=== PATIENT | male | born 1935 | race Caucasian/White ===

== ENCOUNTER 2022-11-07 11:33 | Inpatient (IN) | payer OTHER ==
[~2022-11-07] VITALS: Ht 175.3 cm; Wt 76.4 kg
[~2022-11-07 11:33] MED LIST: OXYACE5T PO
[2022-11-07 12:01] LABS: BASOPHILS ABSOLUTE AUTO 0.02 K/mm3 (0.00-0.23); BASOPHILS PERCENT AUTO 0 % (0-2); EOSINOPHILS PERCENT AUTO 0 % (0-6); Hematocrit 39.7 % (37.0-53.0); Hemoglobin 13.3 g/dL (13.5-17.5); IMMATURE GRAN ABSOLUTE AUTO 0.03 K/mm3 (0.00-0.10); IMMATURE GRAN PERCENT AUTO 0 % (0-1); LYMPHOCYTES ABSOLUTE AUTO 0.29 K/mm3 (0.84-5.20); LYMPHOCYTES PERCENT AUTO 3 % (21-46); MONOCYTES ABSOLUTE AUTO 0.49 K/mm3 (0.16-1.47); MONOCYTES PERCENT AUTO 6 % (4-13); Mean Corpuscular HGB 32.2 pg (26.0-34.0); Mean Corpuscular HGB Conc 33.5 g/dL (31.5-36.5); Mean Corpuscular Volume 96 fL (80-100); Mean Platelet Volume 10.5 fL (9.1-12.4); NEUTROPHILS ABSOLUTE AUTO 7.68 K/mm3 (1.96-9.15); NEUTROPHILS PERCENT AUTO 90 % (41-73); Platelet Count 131 K/mm3 (150-400); RDW Coefficient Variation 12.1 % (11.7-14.2); RDW Standard Deviation 42.5 fL (35.1-46.3); Red Blood Cell Count 4.13 M/mm3 (4.30-5.90); White Blood Cell Count 8.51 K/mm3 (4.00-11.30)
[2022-11-07 12:12] LABS: Albumin, Blood 2.9 g/dL (3.4-5.0); Albumin/Globulin Ratio 0.8 (0.8-1.8); Calcium, Blood 8.4 mg/dL (8.5-10.1); Creatinine, Blood 0.75 mg/dL (0.60-1.20); Globulin, Blood 3.6 g/dL (2.2-4.0); Potassium, Blood 3.9 mmol/L (3.5-5.5); Total Protein, Blood 6.5 g/dL (6.4-8.2)
[2022-11-07 12:21] LABS: Source, Urine Clean Catch
[2022-11-07 12:25] LABS: Bilirubin, Urine Neg (Neg); Blood, Urine Neg (Neg); Glucose Qualitative, Urine Neg (Neg); Ketones, Urine 2+ (Neg); Leukocyte Esterase, Urine Neg (Neg); Nitrite, Urine Neg (Neg); Protein, Urine Neg (Neg); Specific Gravity, Urine 1.015 (1.003-1.022); Urobilinogen, Urine 1+ (Normal)
[2022-11-07 12:35] LABS: Appearance, Urine Clear (Clear); Color, Urine Yellow (P-Yellow)
[2022-11-07 15:05] LABS: Influenza A, PCR NEGATIVE (NEGATIVE); Influenza B, PCR NEGATIVE (NEGATIVE); Resp Syncytial Virus, PCR NEGATIVE (NEGATIVE); SARS-Cov-2 (COVID-19) PCR, MMC NEGATIVE (NEGATIVE)
[2022-11-07 15:22] VITALS: BP 128/87
--- NOTE | 2022-11-07 16:44 | NUR ---
SHIFT SUMMARY PATIENT IS A RECENT ADMIT FROM ED THIS AFTERNOON AFTER MULTIPLE FALLS AT HOME. PATIENT IS ALERT AND ORIENTED TO SELF ONLY. PATIENT IS EXTREMELY CONFUSED AND CANNOT TELL ME HIS NAME. PATIENT HAS NOT ENDORSED ANY PAIN, NAUSEA, SOB OR VOMITTING. BED ALARM IS ON. BED IN LOCKED AND LOWEST POSITION. WILL MONITOR UNTIL SHIFT CHANGE.
[2022-11-07 20:53] VITALS: BP 123/74
[2022-11-08 04:53] VITALS: BP 108/68
[2022-11-08 05:04] LABS: BASOPHILS ABSOLUTE AUTO 0.04 K/mm3 (0.00-0.23); BASOPHILS PERCENT AUTO 1 % (0-2); EOSINOPHILS ABSOLUTE AUTO 0.02 K/mm3 (0.00-0.68); EOSINOPHILS PERCENT AUTO 0 % (0-6); Hematocrit 38.1 % (37.0-53.0); Hemoglobin 12.6 g/dL (13.5-17.5); IMMATURE GRAN ABSOLUTE AUTO 0.02 K/mm3 (0.00-0.10); IMMATURE GRAN PERCENT AUTO 0 % (0-1); LYMPHOCYTES PERCENT AUTO 8 % (21-46); MONOCYTES ABSOLUTE AUTO 0.77 K/mm3 (0.16-1.47); MONOCYTES PERCENT AUTO 13 % (4-13); Mean Corpuscular HGB 32.3 pg (26.0-34.0); Mean Corpuscular HGB Conc 33.1 g/dL (31.5-36.5); Mean Corpuscular Volume 98 fL (80-100); Mean Platelet Volume 10.6 fL (9.1-12.4); NEUTROPHILS ABSOLUTE AUTO 4.77 K/mm3 (1.96-9.15); NEUTROPHILS PERCENT AUTO 78 % (41-73); Platelet Count 116 K/mm3 (150-400); RDW Coefficient Variation 12.3 % (11.7-14.2); RDW Standard Deviation 44.2 fL (35.1-46.3); White Blood Cell Count 6.12 K/mm3 (4.00-11.30)
--- NOTE | 2022-11-08 05:09 | NUR ---
SHIFT SUMMARY; NO ACUTE CHANGES OVERNIGHT. THE PT HAS BEEN RESTING IN BED FOR THE ENTIRETY OF THE NIGHT. THE PT IS AXO TO SELF ONLY, PT IS FREQUENTLY CONFUSED. THE PT IS INCONTINENT/CONTINENT. THE PT IS ON RA AT BASELINE BUT HAS BEEN ON 2L NC SINCE ADMIT WITH O2 SATS >92%. TELE IS IN PLACE, SINUS IN THE 80'S. THE PT DENIES ANY PAIN, SOB, CHEST PAIN/PRESSURE OR N/V THIS SHIFT. CURRENTLY THE PT IS SLEEPING IN BED WITH THE BED IN THE LOWEST POSITION AND THE CALL LIGHT AT BEDSIDE.
[2022-11-08 05:38] LABS: Albumin, Blood 2.5 g/dL (3.4-5.0); Albumin/Globulin Ratio 0.8 (0.8-1.8); Bilirubin, Total 1.3 mg/dL (0.1-1.0); Bun/Creatinine Ratio 31.4 (12.0-20.0); Calcium, Blood 8.2 mg/dL (8.5-10.1); Creatinine, Blood 0.83 mg/dL (0.60-1.20); Globulin, Blood 3.3 g/dL (2.2-4.0); Total Protein, Blood 5.8 g/dL (6.4-8.2)
[2022-11-08 07:19] VITALS: BP 110/73
[2022-11-08 15:07] VITALS: BP 114/66
--- NOTE | 2022-11-08 16:23 | NUR ---
SHIFT SUMMARY PATIENT IS ALERT BUT CONFUSED. PATIENT HAS HAD NO ACUTE EVENTS THIS SHIFT. VITAL SIGNS REVIEWED. PATIENT HAS HAD NO COMPLAINTS OF PAIN, NAUSEA, SOB OR VOMITTING. PATIENT REMAINS ON 2L. PATIENT HAS WORKED WITH PT/OT WELL TODAY. PATIENT REMAINS EXTREMELY CONFUSED AND ALERT AND ORIENTED TO SELF ONLY. BED IN LOCKED AND LOWEST POSITION. CALL LIGHT IN PLACE. WILL MONITOR UNTIL SHIFT CHANGE.
[2022-11-08 19:31] VITALS: BP 116/82
[2022-11-09 02:28] VITALS: BP 126/76
[2022-11-09 05:33] LABS: BASOPHILS ABSOLUTE AUTO 0.04 K/mm3 (0.00-0.23); BASOPHILS PERCENT AUTO 1 % (0-2); EOSINOPHILS ABSOLUTE AUTO 0.12 K/mm3 (0.00-0.68); EOSINOPHILS PERCENT AUTO 3 % (0-6); Hematocrit 40.2 % (37.0-53.0); Hemoglobin 13.5 g/dL (13.5-17.5); IMMATURE GRAN ABSOLUTE AUTO 0.01 K/mm3 (0.00-0.10); IMMATURE GRAN PERCENT AUTO 0 % (0-1); LYMPHOCYTES ABSOLUTE AUTO 0.57 K/mm3 (0.84-5.20); LYMPHOCYTES PERCENT AUTO 12 % (21-46); MONOCYTES ABSOLUTE AUTO 0.76 K/mm3 (0.16-1.47); MONOCYTES PERCENT AUTO 16 % (4-13); Mean Corpuscular HGB 31.9 pg (26.0-34.0); Mean Corpuscular HGB Conc 33.6 g/dL (31.5-36.5); Mean Corpuscular Volume 95 fL (80-100); Mean Platelet Volume 10.8 fL (9.1-12.4); NEUTROPHILS ABSOLUTE AUTO 3.33 K/mm3 (1.96-9.15); NEUTROPHILS PERCENT AUTO 69 % (41-73); Platelet Count 138 K/mm3 (150-400); RDW Coefficient Variation 12.1 % (11.7-14.2); RDW Standard Deviation 42.4 fL (35.1-46.3); Red Blood Cell Count 4.23 M/mm3 (4.30-5.90); White Blood Cell Count 4.83 K/mm3 (4.00-11.30)
[2022-11-09 05:56] LABS: Albumin, Blood 2.5 g/dL (3.4-5.0); Anion Gap 0 mmol/L (6-16); Blood Urea Nitrogen 21 mg/dL (8-24); CO2, Blood 29 mmol/L (21-32); Calcium, Blood 8.6 mg/dL (8.5-10.1); Chloride, Blood 106 mmol/L (98-108); Creatinine, Blood 0.75 mg/dL (0.60-1.20); Glomerular Filtration Rate 87 (60-); Glucose, Blood 94 mg/dL (70-99); Phosphorus, Blood 2.1 mg/dL (2.5-4.9); Potassium, Blood 3.7 mmol/L (3.5-5.5); Sodium, Blood 135 mmol/L (136-145)
--- NOTE | 2022-11-09 06:37 | NUR ---
JUSTICE COURT JUDGE SUMMARY ASSUMED CARE OF THE PT AT 1900. HE IS PLEASANTLY CONFUSED, ORIENTED TO SELF ONLY. BED ALARM ON DUE TO PT FREQUENTLY CLIMBING OUT OF BED. PT HAD NO EVENTS ON TELE AND CONTINUED TO REMOVE IT SO ORDER OBTAINED TO DC TELE. PT USES URINAL INDEPENDENTLY AT TIMES BUT HAS SOME DIFFICULTY. NO ACUTE EVENTS.
[2022-11-09 07:39] VITALS: BP 143/83
[2022-11-09 15:29] VITALS: BP 130/78
--- NOTE | 2022-11-09 17:06 | NUR ---
Initial palliative care consult: Brayan is an 86 year old gentleman with a history of dementia and CAD with stent placement. He lives with his friends Adilia and Josse for the past 15 years according to Josse. He was admitted to [facility] on 11/07/22 with E.coli sepsis from an unknown source. He had been falling down at home which is what prompted his admission. Brayan is alert and oriented only to himself. He is unable to carry on a conversation and isn't able to answer questions appropriately. He is sitting in a bedside chair during the visit. Adilia and Josse are at bedside. They have been friends for awhile. They state he has been estranged from his family for quite some time. Brayan does have one sister in [place], Harper, who they have a phone number for. They report that Brayan told the admitting doctor that he would want to be resusitated. This commercial underwriter believes that Brayan isn't competent to make decisions for himself at this time. Contacted [place] medical records to see is AD or POLST is on file at the [place]. Adilia requested that this commercial underwriter contact Brayan's sister in [place]. Spoke with Harper via phone. She reports she is Brayan's older sister and that they talk from time to time but not recently. Harper reports she still has contact with Brayan's ex and three daughters. Harper states that Brayan's ex- and three daughters have not had any contact with him in 20 years and Harper states that they do not wish to have contact with him or to have any responsibility for him. Harper verbalizes that she is willing to be a decision maker for her brother. Updated Harper on Brayan's current situation. He will be discharging to rehab once medically stable. Harper is in agreement with this. Discussed code status options with her. She requests DNR with limited interventions for Brayan at this time. POLST completed over the phone with Harper. Updated Adilia and Josse of Harper's wishes for Brayan to be a DNR. They verbalized agreement. After conversations with Josse Pat and Harper, pt's AD form the [place] was received. Adilia and Josse are listed as alternate decision makers for Brayan. Brayan's AD reviewed and current treatment plan aligns with his expressed wishes in the AD. Copy of AD placed on chart. POLST on chart for Dr. Huynh to sign. Nursing and Dr. Huynh updated. Harper given phone numbers for pt's room and PC office. Harper states she would like to talk to Brayan on the phone. Will plan to update Deanna and Harper again tomorrow.
--- NOTE | 2022-11-09 18:10 | NUR ---
SHIFT SUMMARY: PT A&O X1. PT PLEASANT AND EASY TO REDIRECT. PT HAS STATED HE WANTS TO GO HOME AND HAS TRIED TO GET OUT OF BED AND CHAIR SEVERAL TIMES THIS SHIFT. PT NOT ABLE TO UNDERSTAND TO USE CALL LIGHT WHEN NEEDING HELP. PLAN FOR PT TO GO TO [facility] AT TIME OF D/C. PT ONE PERSON MODERATE ASSIST. PT CHANGED TO DNR PER PT SISTER AND MAYA STUBBS. PT ATTEMPTING AND SEVERAL TIMES THIS SHIFT TO DISCONNECT SELF FROM BED ALARM. CALL LIGHT IN REACH. BED IN LOWEST POSITION. WILL CONTINUE TO MONITOR.
[2022-11-09 21:11] VITALS: BP 116/71
[2022-11-10 04:01] VITALS: BP 116/77
[2022-11-10 05:52] LABS: Albumin, Blood 2.9 g/dL (3.4-5.0); Albumin/Globulin Ratio 0.7 (0.8-1.8); Bilirubin, Direct 0.3 mg/dL (0.0-0.3); Bilirubin, Indirect 0.3 mg/dL (0.1-0.7); Bilirubin, Total 0.6 mg/dL (0.1-1.0); Bun/Creatinine Ratio 28.1 (12.0-20.0); Creatinine, Blood 0.75 mg/dL (0.60-1.20); Globulin, Blood 3.9 g/dL (2.2-4.0); Phosphorus, Blood 2.8 mg/dL (2.5-4.9); Potassium, Blood 3.3 mmol/L (3.5-5.5); Total Protein, Blood 6.8 g/dL (6.4-8.2)
[2022-11-10 05:58] LABS: BASOPHILS ABSOLUTE AUTO 0.06 K/mm3 (0.00-0.23); BASOPHILS PERCENT AUTO 1 % (0-2); EOSINOPHILS PERCENT AUTO 2 % (0-6); Hematocrit 42.1 % (37.0-53.0); IMMATURE GRAN ABSOLUTE AUTO 0.08 K/mm3 (0.00-0.10); IMMATURE GRAN PERCENT AUTO 2 % (0-1); LYMPHOCYTES ABSOLUTE AUTO 1.04 K/mm3 (0.84-5.20); LYMPHOCYTES PERCENT AUTO 23 % (21-46); MONOCYTES ABSOLUTE AUTO 0.68 K/mm3 (0.16-1.47); MONOCYTES PERCENT AUTO 15 % (4-13); Mean Corpuscular HGB 32.6 pg (26.0-34.0); Mean Corpuscular HGB Conc 35.6 g/dL (31.5-36.5); Mean Corpuscular Volume 92 fL (80-100); NEUTROPHILS ABSOLUTE AUTO 2.62 K/mm3 (1.96-9.15); NEUTROPHILS PERCENT AUTO 57 % (41-73); NRBC ABSOLUTE 0.02 K/mm3 (0.00-0.02); NRBC Auto 0.4 /100 WBC (0.0-0.2); RDW Coefficient Variation 12.1 % (11.7-14.2); RDW Standard Deviation 40.5 fL (35.1-46.3); White Blood Cell Count 4.58 K/mm3 (4.00-11.30)
[2022-11-10 06:10] LABS: HBSAG SCREEN Negative (Negative); HCV AB Non Reactive (Non Reactive); HEP A AB, IGM Negative (Negative); HEP B CORE AB, IGM Negative (Negative)
[2022-11-10 06:22] LABS: Mean Platelet Volume 11.2 fL (9.1-12.4); Platelet Count 161 K/mm3 (150-400)
--- NOTE | 2022-11-10 06:31 | NUR ---
PATIETN ORIENTED TO SELF, AWAKE ALL NIGHT, NON-COOPERATIVE THIS SHIFT. AGGITATED, GETTING OUT OF BED, PROPERTY DITRUCTION, PULLING AT LINES, INC OF URIN, NO BM, GRABBING AND KICKING AT STAFF. MEDICATIONS PROVIDED, PATIENT REMOVED MARIE, AND SOFT WRISTS APPLIED, WHICH WERE MORE EFFCECTIVE. TRANSFERED TO [facility] THIS MORNING.
[2022-11-10 07:41] VITALS: BP 155/99
--- NOTE | 2022-11-10 12:55 | NUR ---
Visited Brayan this afternoon in his room. He is sitting up in the chair with a jeffery vest in place. He has his right leg over the side of the elevated foot rest. He is pulling at his attends and attempting to remove the kaur pad from underneath him. Attempted to redirect him by putting his leg back up and giving him a warm blanket. Also brought on activity apron for him to use as a distraction. He is A/O to his name only today. Emotional support given. Call light in reach of pt. Phone call to Adilia, pt's friend. Gave her an update. Also let her know that the [facility] sent pt's AD that lists her as a decision maker for Brayan. Reviewed AD and current POLST that was completed with Adilia. She is in agreement that the POLST reflects Brayan's wishes as directed by his AD. Phone call to Harper Mabel, pt's sister in [place]. Gave her an update on current condition and also notified her that AD form [place] was received and that Adilia is listed as a decision maker. She verbalized understanding. Harper asked about final expenses and how those are paid for veterans. LM for [employer] to see if we can get an answer for Harper. Harper states that Brayan doesn't have any assests and that neither Josse Pat or her are able to assist with the finances of final expenses. Radha STEEL plans to reach out to the [facility] for an answer for Harper. PC to continue to follow for symptom management and advanced care planning prn.
--- NOTE | 2022-11-10 16:23 | NUR ---
Met with Josse and Adilia at Brayan's bedside this afternoon. Brayan is calm during their visit. Falling asleep at times but wakes up and appears to be having hallucinations. Adilia reports he has been hallucinating at home more recently. They also report he has been wandering more and are concerned for his safety. Discussed current condition, discussed Brayan's AD and explained the disease trajectory for dementia. Both Adilia and Josse verbalized their gratitude for the information they received. Currently they are hoping that he will improve enough to be able to go to rehab to go home. If he is unable to go to rehab they are worried that he will need to have more care than they are able to provide. Adilia reports she is in poor health as well as her brother Josse who is also having some health challenges. Adilia provided Brayan's medicaid ID # [id number] and Brayan's medicare # [id number]. Spoke with CM and psychologist social, Mary, who states pt has [place] medicaid benefits. Pt has a agriculture inspector at [facility]: Korina Marcelino. Adilia reports Brayan eats ground meats and soft foods at home. Diet order changed to soft with ground meat cardiac diet per telephone order per Dr. Huynh. PC to continue to follow for advanced care planning and symptom management. Called Harper back this afternoon with the answer to her questions of whether the VA would cover final expenses. 's Benefit Line # would need to be called for the answer to that question. Bedside nursing and MD updated on conversation.
--- NOTE | 2022-11-10 17:53 | NUR ---
PT IS ALERT ORIENTED TO SELF. THE PT IS UP WITH 1-2 PERSON ASSIST. THE PT HAS A KNEE BRACE PLACED ON HIS LEFT KNEE. OFFERED TO REMOVE THE BRACE TODAY, HOWEVER THE PT REFUSED TO HAVE IT REMOVED EVEN WHILE IN THE RECLINER. THE PT DENIED ANY PAIN. THE PT WAS IN THE RECLINER FOR MOST OF THE DAY. PT REMAINS IN A MARIE VEST DUE IMPULSIVENESS AND HIGH FALL RISK. CHAIR ALARNM IN PLACE. CALL LIGHT IN REACH. WILL CONTINUE TO MONITOR AND ASSESS FOR CHANGES
[2022-11-10 19:52] VITALS: BP 108/79
--- NOTE | 2022-11-11 04:23 | NUR ---
PT WAS VERY ACTIVE EARLY IN SHIFT. IMPULSIVELY OOB. PROFOUNDLY CONFUSED. DOES NOT ANSWER APPROPRIATELY OR FOLLOW DIRECTIONS. VERY DIFFICULT TO REDIRECT AND ONLY FOR TEMPORARY PERIODS. ADMINISTERED 2100 SEROQUEL AND PRN PO ZYPREXA NOT LONG AFTER. SINCE EARLY THIS MORNING PT HAS BEEN SLEEPING SOUNDLY IN BED. HEAVY SLEEPER. APPEARS COMFORTABLE IN BED. DOES NOT PULL AT MARIE WHILE SLEEPING. NO NEW INJURIES/CHANGES SINCE MARIE WAS PUT IN PLACE OR SHIFT CHANGE. BED LOCKED IN LOWEST POSITION. CALL LIGHT LEFT WITHIN REACH ALTHOUGH PT DOES NOT USE CALL LIGHT.
[2022-11-11 05:09] VITALS: BP 137/86
[2022-11-11 05:48] LABS: Albumin, Blood 2.9 g/dL (3.4-5.0); Albumin/Globulin Ratio 0.7 (0.8-1.8); Bilirubin, Total 0.8 mg/dL (0.1-1.0); Bun/Creatinine Ratio 32.6 (12.0-20.0); Calcium, Blood 8.8 mg/dL (8.5-10.1); Creatinine, Blood 0.77 mg/dL (0.60-1.20); Globulin, Blood 4.1 g/dL (2.2-4.0); Potassium, Blood 3.9 mmol/L (3.5-5.5)
[2022-11-11 07:59] VITALS: BP 102/54
--- NOTE | 2022-11-11 12:11 | NUR ---
SHIFT ASSESSMENT During head-to-toe assessment the patient was asleep in his bedside recliner. Difficult to arouse took severl verbal attempts to get patient to become more awake. He opened his eyes and lifted his head up. Only knows that his name is Brayan. Unaware of , today's date, where he is, or his last name. Asked if he was in pain, was unable to verbally communicate where the pain was, but was able to point to his left shoulder. He was unable to describe pain, was able to get him to agree to the description of sharp and that it comes and goes, but he is no aware for how long it has been bothering him. Asked if he was thirst, he responsed yes. He was able to hold the cup of ice water and drink water out of a straw without difficulty and responded "that was good." Asked if he wanted his TV on, he responsed yes. Turned on TV he watched for a short while before falling back asleep.
--- NOTE | 2022-11-11 13:21 | NUR ---
NURSE NOTE THIS RN AGREES WITH THE STUDENT NURSE SHIFT ASSESSMENT
[2022-11-11 15:28] VITALS: BP 129/74
--- NOTE | 2022-11-11 16:29 | NUR ---
Student Nurse-SHIFT SUMMARY Pt transferred 2 assist from his bed to the recliner with the use of a walker. A&O x1 to self, can only state preferred name "Brayan" At the beginning of the shift the patient was difficult to arouse. Responded "mmm hmm" when called his name, head down, and eye closed. As the assessment progressed he did become more alert, lifted his head and opened his eyes. Orientation did not improve. Later in the shift, the patient became more awake was interacting with staff and family/friend visitors. He did become tearful after his visitors left. Had a visit with PT shortly after and was able to ambulate from his chair to the doorway and back. Performed some personal care for the patient, provided a snack, and made him comfortable. Pt chose to stay in his recliner at this time and is not in distress. Use of the call light explained and in reach.
--- NOTE | 2022-11-11 16:49 | NUR ---
"Spiritual Care | Nurse Request Pt. is sitting up in a recliner and he welcomes my visit. Pt. is pleasantly confused but displays evidence of wanting to share some stories. Facilitate a life review of sorts and identify that the Pt. is interested in things of betzaida. Pt. 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 Listened with empathy, interest and a calming presence. Pt. displayed evidence of a sense of wendie with the time we shared together. Prayed with Pt. Pt. 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
--- NOTE | 2022-11-11 17:20 | NUR ---
SHIFT SUMMARY PATIENT IS ALERT AND ORIENTED TO SELF ONLY. PATIENT HAS HAD NO ACUTE EVENTS THIS SHIFT. PATIENT HAS BEEN CONFUSED ALL SHIFT AND MENTATION HAS NOT CHANGED. PATIENT HAS HAD MARIE RESTRAINT RENEWED DUE TO IMPULSIVITY. PATIENT HAS NOT COMPLAINED OF PAIN, NAUSEA, SOB OR VOMITTING. PATIENT HAS BEEN IN CHAIR MOST OF SHIFT DUE TO PREFERENCE. BED IN LOCKED AND LOWEST POSITION. CALL LIGHT IN PLACE. WILL MONITOR UNTIL SHIFT CHANGE.
[2022-11-11 19:36] VITALS: BP 110/67
[2022-11-12 03:53] VITALS: BP 126/74
--- NOTE | 2022-11-12 07:17 | NUR ---
Shift Summary Pt AOx1-2, forgets where he is and is somewhat impulsive. I did not need to tie down his jeffery during this shift, as he was easily redirectible and only tried to get out of bed 2-3 times. No c/o pain or nausea. Pt 2 person max assist d/t weakness. Forgets limitations, easily reoriented. Pt had visual hallucinations frequently from [id number]. He did not sleep at all to my knowledge.
--- NOTE | 2022-11-12 07:22 | NUR ---
UNABLE TO PERFORM 0600 RESTRAINT MANAGEMENT I WAS NOT ON SHIFT.
[2022-11-12 07:35] VITALS: BP 112/67
[2022-11-12 15:38] VITALS: BP 107/77
--- NOTE | 2022-11-12 18:13 | NUR ---
SHIFT SUMMARY: PT A&O TO SELF. PT PLEASANT AND COOPERATIVE WITH CARE. RESTRAINT ORDER AT 728 THIS SHIFT. ATTEMPTING TO KEEP PT OUT OF RESTRAINTS DUE TO POSSIBLE MEMORY CARE PLACEMENT. 2 DOSES OF PO ZYPREXA GIVEN THIS SHIFT. PO ANXIETY MEDICATION DOES NOT SEEM TO WORK WELL FOR PT. PT EASILY REDIRECTED. PT HAS HAD VISUAL HALLUCINATIONS STARTING AROUND 1700. PT STATES HE IS SEEING MANY LARGE SPIDERS IN HIS BED AND ON THE WALL. ATTEMPTED TO REDIRECT PT. PT CURRENTLY IN BED EATING DINNER. CALL LIGHT IN REACH. BED IN LOWEST POSITION. WILL CONTINUE TO MONITOR.
[2022-11-12 21:57] VITALS: BP 131/73
[2022-11-13 03:20] VITALS: BP 98/65
--- NOTE | 2022-11-13 07:06 | NUR ---
Shift Summary Pt AOx1, impulsive and very difficult to redirect. Pt continuously tried to get out of bed, called hospitalist and put in [place] restraint. While jeffery was on Pt continued to try to get out of bed and suffered a small skin tear on his L hand. Dressing placed on wound. Pt had frequent visual hallucinations. Incontinent, attends changed PRN. Pt did not sleep this shift. VSS.
[2022-11-13 07:43] VITALS: BP 115/73
[2022-11-13 09:19] LABS: BASOPHILS ABSOLUTE AUTO 0.06 K/mm3 (0.00-0.23); BASOPHILS PERCENT AUTO 1 % (0-2); EOSINOPHILS ABSOLUTE AUTO 0.07 K/mm3 (0.00-0.68); EOSINOPHILS PERCENT AUTO 1 % (0-6); Hemoglobin 14.6 g/dL (13.5-17.5); IMMATURE GRAN ABSOLUTE AUTO 0.03 K/mm3 (0.00-0.10); IMMATURE GRAN PERCENT AUTO 0 % (0-1); LYMPHOCYTES ABSOLUTE AUTO 1.05 K/mm3 (0.84-5.20); LYMPHOCYTES PERCENT AUTO 11 % (21-46); MONOCYTES ABSOLUTE AUTO 0.91 K/mm3 (0.16-1.47); MONOCYTES PERCENT AUTO 10 % (4-13); Mean Corpuscular Volume 94 fL (80-100); Mean Platelet Volume 10.1 fL (9.1-12.4); NEUTROPHILS ABSOLUTE AUTO 7.32 K/mm3 (1.96-9.15); NEUTROPHILS PERCENT AUTO 78 % (41-73); Platelet Count 232 K/mm3 (150-400); RDW Coefficient Variation 11.9 % (11.7-14.2); RDW Standard Deviation 41.5 fL (35.1-46.3); Red Blood Cell Count 4.56 M/mm3 (4.30-5.90); White Blood Cell Count 9.44 K/mm3 (4.00-11.30)
[2022-11-13 09:20] LABS: Anion Gap 3 mmol/L (6-16); Blood Urea Nitrogen 26 mg/dL (8-24); Bun/Creatinine Ratio 31.1 (12.0-20.0); CO2, Blood 29 mmol/L (21-32); Calcium, Blood 8.7 mg/dL (8.5-10.1); Chloride, Blood 107 mmol/L (98-108); Creatinine, Blood 0.84 mg/dL (0.60-1.20); Glomerular Filtration Rate 84 (60-); Glucose, Blood 120 mg/dL (70-99); Phosphorus, Blood 2.6 mg/dL (2.5-4.9); Potassium, Blood 3.8 mmol/L (3.5-5.5); Sodium, Blood 139 mmol/L (136-145)
[2022-11-13 15:12] VITALS: BP 115/56
--- NOTE | 2022-11-13 16:23 | NUR ---
Pal Care visit Pt awake, picking at things in the air. Hardy vest in place. He does not appear agitated and is not attempting to get out of bed currently. I did not attempt to engage him in conversation. Case conference done with his bedside RN and EMR reviewed. RN states zyprexa does not appear to be helping with visual hallucinations and confusion. Pt's home rx list only had oxycodone 5mg listed. Pt is not currently on anything for pain. Would recommend trying d/c of melatonin and zyprexia and add prn medication for pain that pt is accustomed to taking at home to see if confusion/hallucinations improve. Call made to pt's sister in [place] to update her with plan to call her again no later than Tuesday. Sister, Harper was very appreciative.
--- NOTE | 2022-11-13 17:10 | NUR ---
Report on my visit called to Dr ayala: possibility of increased hallucinations as SE of melatonin and zyprexia that pt does not normally take. The only home Rx listed is Percocet 5/325. New VO for Tylenol prn mild pain and d/c of melatonin and scheduled zyprexa obtained and entered. Bedside RN updated also. Recommended to try tylenol for increased agitation in case discomfort/pain is a contributing factor along with being in hospital/unfamiliar environment. Plan to speak with pharmacist re: lovenox possibly contributing also if pt continues to suffer with hallucinations t/o noc causing insomnia and agitation.
--- NOTE | 2022-11-13 17:18 | NUR ---
SHIFT SUMMARY: PT A&O TO SELF. PT VERY PLEASANT AND COOPERATIVE WITH ALL CARE. PT CONTINUES TO REMAIN IN RESTRAINTS DUE TO RISK OF FALLS. PT INCONTINENT ALL SHIFT. PT MORE CONFUSED TODAY THAN YESTERDAY. PT HAS HAD VISUAL HALLUCINATIONS SEVERAL TIMES THROUGHOUT SHIFT. PT WOULD BE PLAYING WITH IMAGINARY STRING, TALKING TO PEOPLE WHO ARE NOT IN ROOM, AND CLEANING CARPETS. SCHEDULED ZYPREXA AND MELATONIN D/C WITH TYLENOL ADDED TO EMAR. WILL START WITH TYLENOL BEFORE TRYING ANY OTHER MEDICATIONS. OFFERED PT FLUIDS SEVERAL TIMES THROUGHOUT SHIFT DUE TO RESTRAINTS AND POSSIBLE DEHYDRATION. BED BATH GIVEN. PT CURRENTLY RESTING IN BED W/O COMPLICATIONS. CALL LIGHT IN REACH. BED IN LOWEST POSITION. WILL CONTINUE TO MONITOR.
[2022-11-13 20:51] VITALS: BP 97/51
[2022-11-14 02:40] VITALS: BP 109/63
--- NOTE | 2022-11-14 05:18 | NUR ---
SUMMARY: NO ACUTE EVENTS OVERNIGHT. PATIENT VERY LETHARGIC FOR MOST OF SHIFT. DID WAKE UP AND FOLLOW COMMAND FOR MEDS. VSS. PATIETN O2 DID DROP OVERNIGHT. PLACED HIM ON 2L NC. RESTRAINTS REMOVED AT START OF SHIFT AND REMAINED OFF THROUGHOUT THE NIGHT. PATIENT DID NOT ATTEMPT TO GET OUT OF BED AND WAS VERY WEAK. BED ALARM ON. CALL LIGHT IN REACH.
[2022-11-14 07:20] VITALS: BP 106/64
[2022-11-14 10:05] LABS: Albumin, Blood 2.5 g/dL (3.4-5.0); Albumin/Globulin Ratio 0.6 (0.8-1.8); Bilirubin, Total 0.8 mg/dL (0.1-1.0); Bun/Creatinine Ratio 38.6 (12.0-20.0); Calcium, Blood 8.5 mg/dL (8.5-10.1); Creatinine, Blood 0.73 mg/dL (0.60-1.20); Globulin, Blood 3.9 g/dL (2.2-4.0); Potassium, Blood 3.7 mmol/L (3.5-5.5); Total Protein, Blood 6.4 g/dL (6.4-8.2)
[2022-11-14 15:32] VITALS: BP 113/67
--- NOTE | 2022-11-14 20:16 | NUR ---
SHIFT SUMMARY: PT ORIENTED TO SELF. PT VERY PLEASANT AND COOPERATIVE WITH CARE. PT INCONTINENT THIS SHIFT. PT CURRENTLY BEDREST W/O RESTRAINTS NEEDED. PT EXTREMELY LETHARGIC AFTER BREAKFAST. STERNAL RUBBED AND WAS NOT ABLE TO WAKE PT. PALLIATIVE CARE AND DR. CORREIA AWARE. 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 PT EVENTUALLY WOKE TO EAT SOME DINNER. PT COUGHING WITH SOME BITES. AWAITING DNR VS COMFORT CARE DECISION. CALL LIGHT IN REACH BED IN LOWEST POSITION. REPORT GIVEN TO ONCOMING NURSE.
[2022-11-14 22:20] VITALS: BP 119/69
[2022-11-15 02:53] VITALS: BP 115/65
[2022-11-15 05:10] LABS: BASOPHILS ABSOLUTE AUTO 0.07 K/mm3 (0.00-0.23); BASOPHILS PERCENT AUTO 1 % (0-2); EOSINOPHILS ABSOLUTE AUTO 0.06 K/mm3 (0.00-0.68); EOSINOPHILS PERCENT AUTO 1 % (0-6); Hematocrit 40.3 % (37.0-53.0); Hemoglobin 13.1 g/dL (13.5-17.5); IMMATURE GRAN ABSOLUTE AUTO 0.05 K/mm3 (0.00-0.10); IMMATURE GRAN PERCENT AUTO 1 % (0-1); LYMPHOCYTES ABSOLUTE AUTO 0.98 K/mm3 (0.84-5.20); LYMPHOCYTES PERCENT AUTO 11 % (21-46); MONOCYTES ABSOLUTE AUTO 0.79 K/mm3 (0.16-1.47); MONOCYTES PERCENT AUTO 9 % (4-13); Mean Corpuscular HGB 31.9 pg (26.0-34.0); Mean Corpuscular HGB Conc 32.5 g/dL (31.5-36.5); Mean Corpuscular Volume 98 fL (80-100); Mean Platelet Volume 10.6 fL (9.1-12.4); NEUTROPHILS ABSOLUTE AUTO 7.31 K/mm3 (1.96-9.15); NEUTROPHILS PERCENT AUTO 79 % (41-73); Platelet Count 257 K/mm3 (150-400); RDW Standard Deviation 43.4 fL (35.1-46.3); Red Blood Cell Count 4.11 M/mm3 (4.30-5.90); White Blood Cell Count 9.26 K/mm3 (4.00-11.30)
[2022-11-15 05:30] LABS: Albumin, Blood 2.3 g/dL (3.4-5.0); Anion Gap 1 mmol/L (6-16); Blood Urea Nitrogen 27 mg/dL (8-24); Bun/Creatinine Ratio 33.3 (12.0-20.0); CO2, Blood 31 mmol/L (21-32); Calcium, Blood 8.5 mg/dL (8.5-10.1); Chloride, Blood 106 mmol/L (98-108); Creatinine, Blood 0.81 mg/dL (0.60-1.20); Glomerular Filtration Rate 85 (60-); Glucose, Blood 107 mg/dL (70-99); Phosphorus, Blood 2.2 mg/dL (2.5-4.9); Potassium, Blood 3.9 mmol/L (3.5-5.5); Sodium, Blood 138 mmol/L (136-145)
[2022-11-15 07:54] VITALS: BP 113/59
--- NOTE | 2022-11-15 09:00 | NUR ---
pt laying in bed awake, a/ox2, pleasant and coopertive with care, very forgetful and speach is confused at times, lungs are clear dim in bases, resp even and unlabored, no cough noted, is currently on 2 liters 02 via n/c, will titrate down, he is 98 on 2, hrr, was in to see him and said much improved from yesterday, hrr, no edema noted, ppp+1, cap refill <3 sec, vs stable, afebrile, iv site to rfa site is clear and patent, btx4, abd flat soft nontender, incont, briefs in place, skin has some bruising, scabs, right ankle is swollen, maew, general weakness, taisha, call light in reach.
[2022-11-15 16:47] VITALS: BP 111/63
--- NOTE | 2022-11-15 18:36 | NUR ---
pt has had an uneventful day, has not voided today, and bladder scan shows 146mls, no further changes, call light in reach.
[2022-11-15 20:43] VITALS: BP 110/73
[2022-11-16 02:09] VITALS: BP 121/65
[2022-11-16 06:01] LABS: Albumin, Blood 2.5 g/dL (3.4-5.0); Anion Gap 5 mmol/L (6-16); Blood Urea Nitrogen 26 mg/dL (8-24); Bun/Creatinine Ratio 32.2 (12.0-20.0); CO2, Blood 27 mmol/L (21-32); Calcium, Blood 8.7 mg/dL (8.5-10.1); Chloride, Blood 103 mmol/L (98-108); Creatinine, Blood 0.81 mg/dL (0.60-1.20); Glomerular Filtration Rate 85 (60-); Glucose, Blood 114 mg/dL (70-99); Phosphorus, Blood 2.4 mg/dL (2.5-4.9); Potassium, Blood 3.8 mmol/L (3.5-5.5); Sodium, Blood 135 mmol/L (136-145)
[2022-11-16 07:35] VITALS: BP 132/69
--- NOTE | 2022-11-16 14:25 | NUR ---
Spiritual Care Visit. Pt. is sitting up in a recliner and he welcomes my visit. Pt. is unsettled by his inability to stand up. Pt. is wearing one knee brace. Though Pt. is difficult to understand at times, facilitate a life review. Pt. displays evidence of lapses in memeory and verbalizes his frustration by stating "I am slow." With empathetic listening and a calming presence the Pt. displays trust. Prayed with Pt. Pt. verbalizes gratitude for the spiritual care visit, and reached out his hand to thank me.
[2022-11-16 15:55] VITALS: BP 120/79
--- NOTE | 2022-11-16 18:22 | NUR ---
SHIFT SUMMARY PT A&OX1 AND IN PLEASENT MOOD T/O SHIFT. PT PULLED IV DURING SHIFT. TOLERATING PO INTAKE WELL. CALL LIGHT W/IN REACH. 2X MAX ASSIST. FRIENDS INTO SEE PT DURING VISITING HOURS. PLEASENTLY CONFUSED, ENJOYS TALKING ABOUT BIBLE AND SCRIPTURE T/O SHIFT.
[2022-11-16 19:51] VITALS: BP 110/65
[2022-11-17 02:45] VITALS: BP 115/61
--- NOTE | 2022-11-17 04:24 | NUR ---
A/0X1; SELF ONLY. IMPULSIVE /REDIRECTABLE C/O BLE PAIN; PRN TYLENOL GIVEN; HELPFUL PER PATIENT. LLE BRACE IN PLACE. Q2 TURN. IV ABX PER ORDERS. SLEEP PROMOTED. CALL LIGHT IN REACH; ENCOURAGED TO MAKE NEEDS KNOWN. BED ALARM SET.
[2022-11-17 07:05] VITALS: BP 106/69
[2022-11-17 15:15] VITALS: BP 110/61
--- NOTE | 2022-11-17 20:14 | NUR ---
SUMMARY- PT A/O TO SELF AND REMEMBERS SOME DETAILS ABOUT EARLIER HISTORY BUT MIN STM. PT IMPULSIVE AND MULT ATTEMPTS TO GET OOB OR CHAIR. STAFF ASSISTED HIM FROM BED/CHAIR BACK AND FORTH MULT TIMES, 2 PERSON GAIT, WALKER, MAX PIVOT TX. PT TOLERATING FOOD AND FLUID WITH SET UP. PT INCONT VOIDS. ONCE ATTEMPTED TO VOID INTO INSENTIVE SPIROMETER. AWAITING PLACEMENT TO MEMORY FACILITY. PT'S SISTER JERI CALLED IN TODAY, GAVE HER AN UPDATE.
[2022-11-17 20:47] VITALS: BP 116/66
[2022-11-18 03:40] VITALS: BP 114/66
--- NOTE | 2022-11-18 06:11 | NUR ---
PATIENT SLEPT WELL THROUGH THE NIGHT, CALM AND COOPERATIVE WITH CARE. HEALS FLOATED THEY HAVE SOME FLUID/BLISTERS (NOT OPEN). NO OTHER CHANGES TO REPORT.
[2022-11-18 07:24] VITALS: BP 119/68
--- NOTE | 2022-11-18 14:42 | NUR ---
SHIFT SUMMARY PT AWAKE DURING SHIFT REPORT, RESTING QUIETLY IN BED. PT WAITING PLACEMENT TO MEMORY CARE D/T DEMENTIA. PT ASSISTED UP TO [facility] AND LATER TO CHAIR AT . PT IS 2P STAND PIVOT USING GB. CHRONIC L LEG BRACE IN PLACE. MEDS TAKEN WHOLE IN APPLESAUCE W/O DIFFICULTY. NO C/O PAIN. PT ABLE TO PARTICIPATE SOME WITH THERAPY. BLISTERS TO BL HEELS WITH HEEL PROTECTORS IN PLACE. MEPILEX TO BE PLACED FOR PROTECTION. DIET CHANGED TO VEGETARIAN PER PT REQUEST. CALL LT IN REACH.
[2022-11-18 15:25] VITALS: BP 132/70
--- NOTE | 2022-11-18 16:24 | NUR ---
Met with Brayan this afternoon. He is calm, sitting in the bedside chair watching TV. He tells me that he had dinner with his sister last night out in the backyard. His sister, lives in [place]. He is pleasantly confused. He doesn't appear to be in any distress at this time. Pt given a warm blanket as he states "I'm always cold." His friends are currently not at his bedside. Emotional support given. Chart reveiwed. CM is working on finding placement in a memory care facility for him. PC to continue to follow for advanced care planning and symptom managment prn.
[2022-11-18 20:43] VITALS: BP 109/65
--- NOTE | 2022-11-19 05:25 | NUR ---
Shift Summery, pt resting in bed, pt sleeping on and off, pt setting off bed alarm when he needs to void. Pt using urinal fot void in with some assist. call light in reach bed alarm on.
[2022-11-19 05:47] VITALS: BP 93/62
[2022-11-19 05:50] VITALS: BP 102/65
[2022-11-19 07:17] VITALS: BP 118/68
[2022-11-19 15:20] VITALS: BP 110/67
--- NOTE | 2022-11-19 19:41 | NUR ---
SHIFT SUMMARY: NO ACUTE EVENTS. DENIED PAIN. A&O TO SELF ONLY, DOES NOT KNOW HIS . NO BEHAVIORS REQUIRING RESTRAINTS OR SEDATION. TOLERATING PO INTAKE. PT/OT WORKED WITH HIM. PEOPLE HE LIVES WITH CAME TO VISIT; WAS ALSO EVALUATED BY KELLY HICKMAN FROM [facility] THIS AFTERNOON. WAS UP IN CHAIR MOST OF THE DAY; BLE VERY WEAK, REQUIRED 1 PERSON WITH GAIT BELT AND FWW TO ASSIST HIM WITH TRANSFERS.
[2022-11-19 20:04] VITALS: BP 108/66
--- NOTE | 2022-11-20 06:20 | NUR ---
SHIFT SUMERY, PT TRYING TO GET OUT OF BED MULTIPLE TIMES DURING THE NIGHT. PT GIVEN TYLENOL TOLETED, GIVEN A SNACK, SOFT MUSIC PUT ON TV , TV TRYED OFF. TRYED TALKING TO PT ABOUT SAFETY. PT UNSAFE TO BE OUT OF BED WITH OUT ASSIST. PT PROBABLY OUT OF BED 20 + TIMES TRYED TO GIVE PO ZYPREXA PT REFUSED PT GETTING MORE COMBATIVE. ORDER FOR IM ZYPREXA GIVEN AND MEDICATION ADMINISTRED. PT STILL NOT STAYING IN BED, SOFT WRIST RESRTAINTS PLACED ON PT. PT GOT RESTRAINS OFF MULTIPLE TIMES. PT TRYING TO CHEW CULFS , CULFS REAJUSTED MULTIPLE TIMES. PT THEN PUTTING LEGS OVER EDGE OF BED ON BOTH SIDES, HAD TO PLACE BOTH BOTTOM RAILS UP FOR SAFETY. PT STILL WIDE AWAKE.
[2022-11-20 07:20] VITALS: BP 93/63
[2022-11-20 09:08] LABS: Albumin, Blood 2.5 g/dL (3.4-5.0); Anion Gap 4 mmol/L (6-16); Blood Urea Nitrogen 20 mg/dL (8-24); Bun/Creatinine Ratio 25.1 (12.0-20.0); CO2, Blood 29 mmol/L (21-32); Calcium, Blood 8.7 mg/dL (8.5-10.1); Chloride, Blood 107 mmol/L (98-108); Glomerular Filtration Rate 85 (60-); Glucose, Blood 112 mg/dL (70-99); Phosphorus, Blood 2.7 mg/dL (2.5-4.9); Potassium, Blood 4.2 mmol/L (3.5-5.5); Sodium, Blood 140 mmol/L (136-145)
[2022-11-20 15:04] VITALS: BP 112/66
--- NOTE | 2022-11-20 18:27 | NUR ---
END OF SHIFT SUMMARY: ABLE TO DISCONTINUE THE RESTRAINTS THIS MORNING. PATIENT CONTINUED TO BE VERY FIDGETY AND ATTEMPTED TO GET OUT OF BED/CHAIR FREQUENTLY THROUGHOUT THE DAY. ABLE TO MANAGE WITH FREQUENT ROUNDING AND HAVING THE PATIENT SIT IN HIS CHAIR IN THE HALLWAY WITH STAFF. PATIENT CALM AND PLEASANT WITH STAFF. PATIENT CONTINUES TO BE ALERT TO SELF ONLY. PATIENT ABLE TO FOLLOW SOME BASIC COMMANDS. PATIENT'S FAMILY REPORTS THAT HE WAS DOING BETTER YESTERDAY. THEY ALSO REPORT THAT THE PATIENT DOES HAVE DIFFICULTY SLEEPING AT HOME AT TIMES. PATIENT DID EXPERIENCE VISUAL HALLUCINATIONS THIS MORNING. PATIENT REPORTED THAT THERE WAS A MINIATURE PERSON WALKING IN HIS ROOM. PATIENT DID NOT APPEAR DISTRESSED BY THIS.
[2022-11-20 19:41] VITALS: BP 126/69
[2022-11-21 04:26] VITALS: BP 114/67
[2022-11-21 06:58] VITALS: BP 123/61
[2022-11-21 14:59] VITALS: BP 105/65
--- NOTE | 2022-11-21 16:01 | NUR ---
PT HAS BILATERAL HEEL PRESSURE WOUNDS, UNOPENED, SKIN INTACT. HEELS ARE SOFT. MEASUREMENTS AND PHOTOS ARE TAKEN AND PLACED IN CHART. HEEL PROTECTORS PLACED, DATED AND INITIALED. HEELS FLOATED.
--- NOTE | 2022-11-21 17:18 | NUR ---
SHIFT SUMMARY: Pt remains alert to self this shift. Unsteady on feet, unable to stand. Became figidity, wanting to get up and walk around 1600. Was able to redirect for short periods of time. Plesantly calm in recliner with staff. LSCTA on room air. VSS. Bilateral blisters noted and documented. Float heels.
[2022-11-21 19:46] VITALS: BP 125/69
--- NOTE | 2022-11-22 05:10 | NUR ---
SHIFT SUMMERY, PT SITTING IN REACLINER AT START OF SHIFT IN [place] , PT VERY MUCH ENJOYING ALL THE ACTIVITY AND SEEING OTHER PEOPLE. PT BEING COOPERATIVE . IF PT PUTTING FEET DOWN TO FLOOR FROM RECLINER AND ASKED TO SIT BACK IN CAHIR PT WILLING TO COMPLY. PT GIVEN HIS MEDS AND OFFRED A SNACK PT NOT WANTING TO GO TO ROOM, PT FALLING ASLEEP PT AWOKE BREIFLY AND WHEN ASKE IF HE WANTED TO GO TO BED SAID YES. PT TRANSFRED TO BE AND HAD STATED HE WAS VERY TIRED. PT SLEPT ALL NIGHT AND APPEARD TO BE COMFORTABLE AND SEEMED TO BE RESTING WELL. CALL LIGHT IN REACH BED ALARM ON.
[2022-11-22 05:57] VITALS: BP 98/61
[2022-11-22 06:18] LABS: Albumin, Blood 2.2 g/dL (3.4-5.0); Anion Gap 2 mmol/L (6-16); Blood Urea Nitrogen 30 mg/dL (8-24); Bun/Creatinine Ratio 38.9 (12.0-20.0); CO2, Blood 30 mmol/L (21-32); Calcium, Blood 8.6 mg/dL (8.5-10.1); Chloride, Blood 108 mmol/L (98-108); Creatinine, Blood 0.77 mg/dL (0.60-1.20); Glomerular Filtration Rate 86 (60-); Glucose, Blood 118 mg/dL (70-99); Phosphorus, Blood 3.2 mg/dL (2.5-4.9); Potassium, Blood 4.2 mmol/L (3.5-5.5); Sodium, Blood 140 mmol/L (136-145)
[2022-11-22 07:03] VITALS: BP 115/53
[2022-11-22 15:19] VITALS: BP 102/64
--- NOTE | 2022-11-22 17:50 | NUR ---
SHIFT SUMMARY- VSS. ON RA. IV PATENT AND INTACT. GENTLE, PLEASANT MOST OF SHIFT. IMPULSIVE TOWARDS END OF SHIFT, MEDICATED PER EMAR. UP IN CHAIR DURING AFTERNOON SHIFT. FAMILY VISITED IN AFTERNOON. A&O TO SELF. POOR HISTORIAN, DOES RECALL CHILDHOOD MEMORIES. MEPOLIX CHANGED ON BOTH HEEL. BLISTERS DRY, TENDER. WILL CONTINUE TO MONITOR. CALL LIGHT IN REACH. CHAIR/BED ALARM ON FOR SAFETY.
[2022-11-22 19:17] VITALS: BP 109/77
--- NOTE | 2022-11-23 04:19 | NUR ---
SHIFT UNREMARKABLE. PT WAS MILDLY IRRITATED AND DIFFICULT TO REDIRECT UPON SHIFT CHANGE BUT AFTER BEING PUT IN BED PT HAS BEEN RESTING THROUGHOUT THE REST OF THE SHIFT. SLEEPING COMFORTABLY. PT DOES NOT USE CALL LIGHT AND OCCASIONALLY CALLS OUT FOR HELP BUT IS ABLE TO RELAX AGAIN AFTER NURSE SITS AT BEDSIDE FOR FEW MINUTES TO HELP HIM RELAX. [facility] PER REPORT. BED LOCKED IN LOWEST POSITION. CALL LIGHT LEFT WITHIN REACH.
[2022-11-23 04:30] VITALS: BP 102/61
[2022-11-23 08:09] VITALS: BP 124/71
--- NOTE | 2022-11-23 11:52 | NUR ---
Spiritual Care Visit. Pt. is sitting up in his recliner looking at a puzzle book. Pt. is pleasant, and continues to display evidence of being pleasantly confused. Pt. is unsettled by "not knowing where they are going to send me." Listen with empathy and a calming presence. Facilitated some life review, and Pt. displayed evidence of being comforted with the recollection. Prayed with Pt. Pt. verbalized gratitude for the spiritual care visit.
[2022-11-23 15:51] VITALS: BP 119/61
--- NOTE | 2022-11-23 17:25 | NUR ---
SHIFT SUMMARY- VSS. A&O X1. PLEASANT. GETS LONELY SO RN SITS WITH HIM WHEN HE GETS ANXIOUS, CALMS HIM. USING URINAL WHEN AVAILABLE. CALLS APPROPIATELY. TOOK MEDS WELL. COOPERATIVE. HEEL BLISTER RED REDRESSED WITH MEPOLIX. CALL LIGHT IN REACH. BED/CHAIR ALARM ON FOR SAFETY. WILL CONTINUE MONITOR.
[2022-11-23 19:19] VITALS: BP 120/66
[2022-11-24 03:12] VITALS: BP 128/69
--- NOTE | 2022-11-24 06:00 | NUR ---
SUMMARY: PT ORIENTED TO SELF AND FAMILY ONLY W/BED ALARM ON AND CAMERA MONITORING IN PROGRESS FOR FALL RISK. HE'S IMPULSIVE AT TIMES BUT WAS PLEASANTLY REDIRECTABLE T/O NOCTE. PT ASSISTED W/URINAL AND IS HEAVY 1-2PA BETWEEN BED AND CHAIR. L.KNEE BRACE AND SHOES REQUIRED DURING MOBILITY. MEPILEXES REMAIN INTACT TO BLISTERED HEELS AND LEG ELEVATION ENCOURAGED IN BED. HE SLEPT INTERMITTENTLY T/O NOCTE AND DENIED PAIN/COMPLAINTS. VSS AND AFEBRILE. D/C TO [facility]. WCTM AND REPORT TO DAY RN.
[2022-11-24 07:07] VITALS: BP 116/62
[2022-11-24 12:39] VITALS: BP 124/65
--- NOTE | 2022-11-24 14:15 | NUR ---
Spiritual care Visit. Pt. is awake in bed and welcomes my visit. Pt. remains pleasantly confused, and sometimes difficult to understand. Facilitated more life review with the Pt. Pt. displayed evidence fo wendie when recalling certain events. This paper cone grader listenedwith interest, empathy, and a calming presence. Prayed with Pt. Pt. verbalized gratitude for the spiritual care visit.
[2022-11-24] MEDS ORDERED: Acetaminophen650 M1 PO (14:56)
[2022-11-24] MEDS ORDERED: OLAN5 PO (14:57)
[2022-11-24] MEDS ORDERED: MELA3 PO (14:57)
[2022-11-24] MEDS ORDERED: METO25ER PO (14:58)
--- NOTE | 2022-11-24 18:41 | NUR ---
SUMMARY- PT ALERT TO SELF AND FAMILY. FORGETFUL AND IMPULSIVE. GARBLED SPEECH. HAVING DELUSIONS THAT HE NEEDS TO DO CERTAIN DUTIES AND WORK. CONSTANTLY TRYING TO GET OUT OF BED OR CHAIR. USING ALARMS AND CAMERA AND FREQ VISUAL MONITORING. PT TO CHAIR, GAIT BELT 2 PERSON MAX TX ASSIST, PT IS WEAK AND UNCOORDINATED AND STIFF. TOLERATING FOOD AND FLUID WITH SET UP. MOSTLY CONT OF VOID, OCC INCONT. NO BM FOR 3 DAYS. GIVEN LAXATIVE AND PRUNE JUICE. PLAN TO MOVE TO [facility] TOMORROW. WILL REPORT TO NOC RN.
[2022-11-24 19:25] VITALS: BP 130/74
--- NOTE | 2022-11-24 20:06 | NUR ---
SUMMARY- PT ALERT TO SELF AND FAMILY. PT HAS SEVERE DEMENTIA AND STAFF HAD GREAT DIFFICULTY KEEPING PT IN BED AND AND IN CHAIR. FREQ DELUSIONS THAT HE HAS TO GO DO WORK OR MOVE THE CAR. UNABLE TO REORIENT. PT ON CAMERA, SANTANAT CALLS TO KEEP PT SAFE. MEDICATED X2 TODAY WITH ZYPREXA WITH LITTLE TO NO EFFECT. PT VOIDS IN URINAL OR ON SBC. NO BM FOR 3 DAYS. STARTED SENEKOT AND DULCOLAX TABS AND PRUNE JUICE. TOLERATING FOOD AND FLUIDS. PLAN FOR PT TO BE DC'D TO [facility] TOMORROW.
--- NOTE | 2022-11-25 04:45 | NUR ---
SHIFT SUMMARY ADMITTED FOR ACUTE CHF. DNR CODE. PLAN IS FOR DC TO [facility]. HE IS ON VEGETARIAN/CARDIAC DIET. A&O X2. 2 MAX ASSIST TO BSC. BILL [employer]. BOWEL CARE GIVEN ON PREVIOUS SHIFT AND THIS SHIFT. ON RA. CRUSH MEDICATIONS IN APPLESAUCE. BLISTERS ON HEELS, MEPILEX IN PLACE ON HEELS
[2022-11-25 05:09] VITALS: BP 134/84
[2022-11-25 07:08] VITALS: BP 117/73
[2022-11-25] MEDS ORDERED: Woman's Laxative5 MG PO (14:10)
[2022-11-25] MEDS ORDERED: DULCOLAX400 MG/5 M PO (14:10)
[2022-11-25] MEDS ORDERED: MICONAZOLE NITR85 GM TOP (14:11)
--- NOTE | 2022-11-25 14:51 | NUR ---
PT DISCHARGED TO [facility] AT 1440 VIA STRETCHER. REPORT CALLED TO FACILITY STAFF. PT HAD X LG BM BEFORE DISCHARGE. PT VOIDING. TOLERATING FOOD AND FLUIDS. MEPILEX TO HEEL BLISTERS. INFORMED STAFF OF BLISTERS ON HEELS AND REDNESS IN GROIN. PT IN ATTENDS, FRESHLY WENT TO THE BATHROOM BEFORE LEAVING AND CHANGED ATTENDS. SENT WITH PACKET
== END 2022-11-25 14:41 | disposition home health service (06) | DRG 280 ==
LOC: ER 11:33 → MEDS 11:34
PROVIDERS: Emergency Medicine; Internal Medicine; ADMIT Family Medicine
DX: I50.31 Acute diastolic (congestive) heart failure (principal); A41.51 Sepsis due to Escherichia coli [E. coli]; I21.A1 Myocardial infarction type 2; G92.8 Other toxic encephalopathy; F03.918 Unspecified dementia, unspecified severity, with other behavioral disturbance; E87.1 Hypo-osmolality and hyponatremia; F05 Delirium due to known physiological condition; Z66 Do not resuscitate; Z51.5 Encounter for palliative care; R77.8 Other specified abnormalities of plasma proteins; D69.6 Thrombocytopenia, unspecified; R94.5 Abnormal results of liver function studies; R74.01 Elevation of levels of liver transaminase levels; Z20.822 Contact with and (suspected) exposure to COVID-19; S20.211A Contusion of right front wall of thorax, initial encounter; K76.1 Chronic passive congestion of liver; R29.6 Repeated falls; I25.10 Atherosclerotic heart disease of native coronary artery without angina pectoris; D64.9 Anemia, unspecified; E83.39 Other disorders of phosphorus metabolism; E87.6 Hypokalemia; E86.0 Dehydration; W19.XXXA Unspecified fall, initial encounter; Z79.891 Long term (current) use of opiate analgesic; Z95.5 Presence of coronary angioplasty implant and graft; Z78.1 Physical restraint status
CPT/HCPCS: 0241U; 36415; 70450; 71045; 74177; 76705; 78451; 80053; 80069; 80074; 81003; 82248; 83605; 83880; 84100; 84145; 84484; 85025; 87040; 87077; 87186; 93005; 93010; 93306; 93970; 94760; 97110; 97116; 97162; 97166; 97530; 97535; 99285-25; A9270; A9500; J0280; J0456; J0696; J1650; J1940; J2785; J7050; J7060; Q9967

== ENCOUNTER 2023-03-13 12:18 | Emergency (ER) | payer OTHER ==
[~2023-03-13] VITALS: Ht 170.2 cm; Wt 74.8 kg
[~2023-03-13 12:18] MED LIST changes: +Acetaminophen650 M1 PO; +DULCOLAX400 MG/5 M PO; +MELA3 PO; +METO25ER PO; +MICONAZOLE NITR85 GM TOP; +OLAN5 PO; +Woman's Laxative5 MG PO
[2023-03-13 16:28] VITALS: BP 125/81
== END 2023-03-13 20:26 ==
LOC: ER 12:18
DX: S01.411A Laceration without foreign body of right cheek and temporomandibular area, initial encounter (principal); S00.11XA Contusion of right eyelid and periocular area, initial encounter; W50.0XXA Accidental hit or strike by another person, initial encounter; Z79.899 Other long term (current) drug therapy; I50.9 Heart failure, unspecified
CPT/HCPCS: 12013; 70450; 70486; 72125; 99283-25; A9270

== ENCOUNTER 2023-03-29 09:35 | Emergency (ER) | payer OTHER ==
[~2023-03-29] VITALS: Ht 175.3 cm; Wt 72.6 kg
[2023-03-29 09:41] VITALS: BP 127/77
== END 2023-03-29 11:29 | disposition home or self-care (01) ==
LOC: ER 09:35
DX: M19.071 Primary osteoarthritis, right ankle and foot (principal); F03.90 Unspecified dementia, unspecified severity, without behavioral disturbance, psychotic disturbance, mood disturbance, and anxiety; I50.9 Heart failure, unspecified; Z79.899 Other long term (current) drug therapy
CPT/HCPCS: 73610; 73630; 99283-25

== ENCOUNTER 2023-08-18 01:32 | Emergency (ER) | payer OTHER ==
[~2023-08-18] VITALS: Ht 177.8 cm; Wt 83.9 kg
[2023-08-18 08:06] VITALS: BP 108/67
== END 2023-08-18 08:08 | disposition home or self-care (01) ==
LOC: ER 01:32
DX: S93.401A Sprain of unspecified ligament of right ankle, initial encounter (principal); I50.9 Heart failure, unspecified; F03.90 Unspecified dementia, unspecified severity, without behavioral disturbance, psychotic disturbance, mood disturbance, and anxiety; Z79.899 Other long term (current) drug therapy; W18.30XA Fall on same level, unspecified, initial encounter; Y93.89 Activity, other specified
CPT/HCPCS: 73600; J2250; J2310; J3010; J7030

== ENCOUNTER 2023-11-04 14:05 | Emergency (ER) | payer OTHER ==
[~2023-11-04] VITALS: Ht 167.6 cm; Wt 72.6 kg
[2023-11-04 15:03] LABS: BASOPHILS ABSOLUTE AUTO 0.06 K/mm3 (0.00-0.23); BASOPHILS PERCENT AUTO 1 % (0-2); EOSINOPHILS ABSOLUTE AUTO 0.12 K/mm3 (0.00-0.68); EOSINOPHILS PERCENT AUTO 2 % (0-6); Hematocrit 42.1 % (37.0-53.0); Hemoglobin 14.1 g/dL (13.5-17.5); IMMATURE GRAN ABSOLUTE AUTO 0.01 K/mm3 (0.00-0.10); IMMATURE GRAN PERCENT AUTO 0 % (0-1); LYMPHOCYTES ABSOLUTE AUTO 1.36 K/mm3 (0.84-5.20); LYMPHOCYTES PERCENT AUTO 20 % (21-46); MONOCYTES ABSOLUTE AUTO 0.84 K/mm3 (0.16-1.47); MONOCYTES PERCENT AUTO 12 % (4-13); Mean Corpuscular HGB 31.8 pg (26.0-34.0); Mean Corpuscular HGB Conc 33.5 g/dL (31.5-36.5); Mean Corpuscular Volume 95 fL (80-100); Mean Platelet Volume 9.6 fL (9.1-12.4); NEUTROPHILS ABSOLUTE AUTO 4.41 K/mm3 (1.96-9.15); NEUTROPHILS PERCENT AUTO 65 % (41-73); Platelet Count 193 K/mm3 (150-400); RDW Coefficient Variation 12.3 % (11.7-14.2); Red Blood Cell Count 4.43 M/mm3 (4.30-5.90)
[2023-11-04 15:29] LABS: Magnesium, Blood 2.4 mg/dL (1.6-2.4)
[2023-11-04 15:30] LABS: Albumin, Blood 3.1 g/dL (3.4-5.0); Albumin/Globulin Ratio 0.8 (0.8-1.8); Bilirubin, Total 0.7 mg/dL (0.1-1.0); Bun/Creatinine Ratio 31.5 (12.0-20.0); Creatinine, Blood 0.67 mg/dL (0.60-1.20); Globulin, Blood 3.9 g/dL (2.2-4.0); Potassium, Blood 4.3 mmol/L (3.5-5.5)
[2023-11-04] MEDS ORDERED: SENN187 PO (16:01)
[2023-11-04] MEDS ORDERED: LOPE2C PO (16:01)
[2023-11-04 17:29] VITALS: BP 138/80
== END 2023-11-04 17:40 | disposition home or self-care (01) ==
LOC: ER 14:05
PROVIDERS: Student in an Organized Health Care Education/Training Program
DX: M25.512 Pain in left shoulder (principal); R07.89 Other chest pain; I50.9 Heart failure, unspecified; F03.90 Unspecified dementia, unspecified severity, without behavioral disturbance, psychotic disturbance, mood disturbance, and anxiety; Z79.899 Other long term (current) drug therapy; W18.39XA Other fall on same level, initial encounter
CPT/HCPCS: 70450; 71046; 73030; 80053; 83735; 85025